=== PATIENT | female | born 1965 | race Caucasian/White ===

== ENCOUNTER 2018-01-30 06:35 | Day surgery (SDC) | payer BC ==
[2018-01-30] MEDS ORDERED: Sodium Chloride 0.9% 10 ML Syringe FLUSH PRN (07:30)
[2018-01-30] MEDS ORDERED: Lactated Ringers 1,000 ML IV SCH (07:30)
[2018-01-30] MEDS ORDERED: Ketorolac 30 MG/ML SDV IVPUSH ONE (08:00)
[2018-01-30] MEDS ORDERED: Lactated Ringers 1,000 ML IV ONE (08:00)
[2018-01-30] MEDS ORDERED: Rocuronium 100 MG/10 ML MDV IV ONE (08:00)
[2018-01-30] MEDS ORDERED: Ondansetron 4 MG/2 ML SDV IVPUSH ONE (08:00)
[2018-01-30] MEDS ORDERED: Propofol 200 MG/20 ML SDV IV ONE (08:00)
[2018-01-30] MEDS ORDERED: Midazolam 1 MG/ML 2 ML SDV IV ONE (08:00)
[2018-01-30] MEDS ORDERED: fentaNYL 100 MCG/2 ML SDV IV ONE (08:00)
[2018-01-30] MEDS ORDERED: Bupivacaine 0.5%/EPINEPHrine 1:200,000 50 ML MDV ONE (08:30)
[2018-01-30] MEDS ORDERED: ceFAZolin 1 GM in Sodium Chloride 0.9% 50 ML IV ONE (08:45)
[2018-01-30] MEDS ORDERED: ceFAZolin 1 GM Vial IVPUSH ONE (08:45)
--- NOTE | 2018-01-30 09:23 | PCM.OPNOTE ---
- General Post-Op/Procedure Note Date of Surgery/Procedure: 01/30/18 Operative Procedure(s): Cholecystectomy Findings: Normal appearing gallbladder Biliary Dyskinesia Pre Op Diagnosis: Biliary Dyskinesia Post-Op Diagnosis: Same Anesthesia Technique: General ET Tube Primary Surgeon: Live Weber Pathology: Gallbladder Output, Urine Amount: 0 EBL in mLs: 10 Complications: None Condition: Good
[2018-01-30] MEDS ORDERED: Acetaminophen/HYDROcodone 325-5 MG Tab PO PRN (09:59)
--- NOTE | 2018-01-30 14:57 | HP ---
ADMISSION DATE: 01/30/2018 HISTORY: This 52-year-old female is referred today by Jackie Watkins for cholecystectomy. This patient has been having symptoms of postprandial upper abdominal pain and nausea. These symptoms have been going on for about 2 years and have been worsening in intensity and frequency recently. She underwent evaluation with ultrasound, which was unremarkable, but a HIDA scan was performed which documented decreased gallbladder ejection fraction down to 19% even after stimulation. PAST MEDICAL HISTORY: Notes multiple previous sections, prior hysterectomy and laparoscopic oophorectomy. CURRENT MEDICATIONS: 1. Hydrochlorothiazide 25 mg a day. 2. Albuterol inhaler p.r.n. 3. Vitamins. 4. Ibuprofen p.r.n. ALLERGIES: She has no known drug allergies. FAMILY HISTORY: Noncontributory. SOCIAL HISTORY: The patient is and lives in the [facility]. REVIEW OF SYSTEMS: She has recently otherwise been feeling well with no severe cough, cold, or sore throat symptoms. No chest pain or palpitations. She does have some symptoms of constipation, but no difficulty voiding and no extremity complaints. PHYSICAL EXAMINATION: VITAL SIGNS: Temperature is 97.8, pulse 62, blood pressure is 109/71. GENERAL: The patient is an adult female currently in no acute distress. HEENT: Her head is normocephalic. There is no scleral icterus. HEART: Regular without murmur. RESPIRATORY: Lungs are clear. Breath sounds are equal. There is no wheezing. ABDOMEN: Soft, nondistended. No palpable mass, herpetic or splenic enlargement. Minimal right upper quadrant tenderness was noted. There is no guarding. EXTREMITIES: No calf induration or ankle edema. IMPRESSION: Symptomatic biliary dyskinesia. RECOMMENDATIONS: Cholecystectomy. INFORMED CONSENT: I have discussed the proposed cholecystectomy with the patient reviewed with her indications, options, risks such as but not limited to bleeding, infection, organ injury, and possible need to convert to an open procedure. She appears to understand and agrees to proceed. /[id number] SERA/JORGE
--- NOTE | 2018-01-31 15:03 | OR ---
DATE OF OPERATION: 01/30/2018 SURGEON: Live Weber MD REFERRING PROVIDER: Jackie Watkins NP PREOPERATIVE DIAGNOSIS: Biliary dyskinesia. POSTOPERATIVE DIAGNOSIS: Biliary dyskinesia. OPERATION PERFORMED: Laparoscopic cholecystectomy. INDICATIONS FOR SURGERY: This 52-year-old female has been having a two-year history of postprandial upper abdominal pain. Symptoms are increasing. Workup has identified a decreased gallbladder ejection fraction, which is felt to be the source of her symptoms and she comes for cholecystectomy. FINDINGS: The gallbladder appears normal on the surface. No visible anatomic abnormalities or gross inflammation is seen. The adjacent liver appears normal. Other intra-abdominal organs are normal as viewed laparoscopically. The patient has had previous pelvic surgery. PROCEDURE IN DETAIL: The patient was taken to the operating room. She was given general endotracheal anesthesia and the abdomen was sterilely prepped and draped. A supraumbilical stab wound incision was made. Through this, a Veress needle was inserted and pneumoperitoneum via this needle to a pressure of 15 mmHg was achieved with carbon dioxide. The Veress needle was then replaced with a 12-mm trocar into which the 5 mm variable angled laparoscopic camera was inserted. Under direct visualization, 5-mm trocars were placed in the subxiphoid midline and in 2 areas of the right abdomen. All trocar sites were infiltrated with Marcaine prior to incision. Intra-abdominal inspection was carried out and attention was turned to the gallbladder. It was secured with grasping forceps placed through the lateral trocars and retracted superiorly and anteriorly. Fatty tissue and peritoneum overlying the cystic duct and cystic artery were carefully cleared and the cystic artery once identified was doubly clipped and divided. The triangle of Calot was further cleared and an accessory cystic artery was identified and it too was doubly clipped and divided. Once the cystic duct had been clearly and positively identified, it was milked and then doubly clipped and divided near the gallbladder with great care being used to avoid any possible injury or compromise to the common bile duct. The gallbladder was then dissected free from the undersurface of the liver using the hook cautery device. Once the gallbladder was free, it was extracted through the umbilical trocar site without difficulty. Reinspection of the gallbladder bed was performed, and good hemostasis was maintained. With no sign of bleeding or any other complication, the trocars were removed under direct visualization and pneumoperitoneum was evacuated. The fascia of the umbilical trocar site was closed with a [id number] Vicryl suture. Wounds were irrigated with Betadine and saline solution. Skin incisions were approximated with interrupted 4-0 Vicryl subcuticular stitch. Steri-Strips and benzoin were applied. Antibiotic ointment and sterile dressings were placed. The patient was awakened, extubated, and taken from the operating room in satisfactory condition. ESTIMATED BLOOD LOSS: 10 mL. COMPLICATIONS: None. PROGNOSIS: Good. /[id number] SERA/JORGE cc: Jackie Watkins NP
== END 2018-01-30 11:41 | disposition home or self-care (01) ==
LOC: FB.SDS 06:35
PROVIDERS: ATTEND Surgery
DX: K81.1 Chronic cholecystitis (principal); E78.00 Pure hypercholesterolemia, unspecified; E66.9 Obesity, unspecified; Z68.30 Body mass index [BMI] 30.0-30.9, adult; Z79.899 Other long term (current) drug therapy
CPT/HCPCS: 47562; 88304; A9270; J0690; J1885; J2250; J2405; J2704; J3010; J7120